=== PATIENT | male | born 1955 | race Caucasian/White ===

== ENCOUNTER → 2023-11-10 12:19 | Outpatient (REF) | payer MEDICARE, OTHER, SELFPAY | LOC: HWRAD 12:19 | PROVIDERS: ATTENDING PHYSICIAN Family Medicine | DX: R10.9 Unspecified abdominal pain (principal); R35.0 Frequency of micturition | CPT/HCPCS: 76770 ==

== ENCOUNTER 2024-02-07 18:19 | Inpatient (IN) | payer MEDICARE, OTHER, SELFPAY ==
[2024-02-07 12:34] VITALS: BMI 42.8
[2024-02-07 12:38] VITALS: BP 160/98
[2024-02-07 12:58] LABS: % Basophils 0.6 % (0-2); % Eosinophils 2.5 % (0-6); % Immature Granulocytes 0.4 % (0-0.5); % Lymphocytes 20.5 % (20.5-51.1); Absolute Eosinophils 0.1 10^3/uL (0-0.7); Absolute Monocytes 0.3 10^3/uL (0.1-0.6); Absolute Neutrophils 3.3 10^3/uL (1.4-6.5); Hemoglobin 15.7 g/dL (13.0-18.0); Mean Corp Hgb Conc. 33.4 g/dL (33.0-37.0); Mean Corpuscular Hgb 30.3 pg (27.0-31.0); Mean Corpuscular Volume 90.6 fL (80.0-94.0); Mean Platelet Volume 9.9 fL (7.4-10.4); Nucleated Red Blood Cells % 0 % (-); Platelet Count 143 10^3/uL (130-400); Red Blood Cell Count 5.19 10^6/uL (4.70-6.10); Red Cell Dist. Width 13.5 % (11.5-14.5); White Blood Cell Count 4.8 10^3/uL (4.8-10.8)
[2024-02-07 13:03] LABS: INR 1.07; PT 14.2 Sec (11.4-14.6)
[2024-02-07 13:04] LABS: APTT 32.4 Sec (23.4-35.0)
[2024-02-07 13:17] LABS: ALT (SGPT) 37 U/L (0-50); AST (SGOT) 41 U/L (17-59); Albumin 4.2 g/dl (3.5-5.0); Alkaline Phosphatase 75 U/L (38-126); Blood Urea Nitrogen 18 mg/dl (9-20); Calcium 8.8 mg/dl (8.4-10.2); Carbon Dioxide 27 mmol/L (22-30); Chloride 107 mmol/L (98-107); Glucose 179 mg/dl (70-99); Potassium 3.8 mmol/L (3.5-5.1); Sodium 141 mmol/L (135-145); Total Bilirubin 1.2 mg/dl (0.2-1.3); Total Protein 6.6 g/dl (6.3-8.2); eGFR > 60.00
[2024-02-07 13:32] LABS: NT-proBNP 1500 pg/ml; Troponin I 0.084 ng/ml
[2024-02-07 15:35] LABS: Troponin I 0.155 ng/ml
[2024-02-07 15:43] LABS: D-Dimer > 20.00 ug/mlFEU (0.00-0.50)
[2024-02-07 16:06] VITALS: BP 163/115
--- NOTE | 2024-02-07 16:09 | CON.INTV ---
Consultation
Consultation Request
Date/Time Consultation Requested: 02/07/2024
Date/Time Consultation Performed: 02/07/2024
Performing Provider: Dr. Donavon Lancaster
Reason for Consultation: Acute pulmonary embolus
Medical History
-
History of Present Illness:
68-year-old man with history of arthritis, hypertension, BPH, GERD, hypercholesterolemia who comes to the hospital complaining of shortness of breath after coming from [facility]. Found to have pulmonary embolism with RV strain on CAT scan.
PERT alert was called from ED, I urgently evaluated patient.
Patient states that immediately after coming off the plane he felt short of breath. He needed a wheelchair to walk back to his car.
Due to persistent symptoms he came to the emergency room for evaluation.
Prior to these he was in multiple countries in [place] able to ambulate with no problems.
He denies prior history of clots
Denies prior history of cancer
He reports being up-to-date with cancer screening
Denies family history of clots.
Past Medical History
Past Medical History: Other (See assessment and plan findings)
Social History
Tobacco: Other (Never smoker)
Alcohol: Occasional
Drug: None
Personal:
Living: With Family
Family History
Family History: Reviewed & Not Pertinent
Allergies / Home Medications
Allergies
Allergy/AdvReac Type Severity Reaction Status Date / Time
No Known Allergies Allergy Unverified 02/17/23 13:03
Home Medications
�Medication �Instructions �Recorded �Confirmed �Last Taken �Type
atorvastatin 20 mg tablet 20 mg PO DAILY High Cholesterol 02/14/09 02/07/24 02/07/24 History
ibuprofen 200 mg capsule 3 tab PO Q6HPRN PRN mild pain 02/14/09 02/07/24 02/06/24 History
valsartan 80 mg tablet (Diovan) 160 mg PO DAILY Blood Pressure 02/14/09 02/07/24 02/07/24 History
Semaglutide Vial 40 units SC SA 02/07/24 02/07/24 01/28/24 History
sarilumab 150 mg/1.14 mL 150 mg SC Q2W Autoimmune Disorder 02/07/24 02/07/24 Unknown History
subcutaneous pen injector (Kevzara)
Review of Systems
-
History Source: Patient
All other systems: Negative unless noted
Vitals / Labs / Diagnostic Testing
Vital Signs
Temp Pulse Resp BP Pulse Ox
98.2 F 98 18 160/98 94
02/07/24 12:38 02/07/24 12:38 02/07/24 12:38 02/07/24 12:38 02/07/24 12:38
Lab Data
02/07/24 12:47
02/07/24 12:47
Laboratory Results
02/07/24 02/07/24
12:47 15:44
PT 14.2
INR 1.07
APTT 32.4 Cancelled
Diagnostic Testing:
Physical Exam
-
HEENT: Normocephalic
Cardiovascular: S1/S2 and Prashanth's Sign (n)
Respiratory: Non-Labored Respirations
GI: Soft and Non Distended
Neurology: Awake, Oriented, AO x 3 and No Motor Deficits
Skin: Warm, Good Color and Other (Adequate distal perfusion)
General: Respiratory Distress and Comfortable
Assessment
-
68-year-old man who came to the emergency room complaining of shortness of breath after transatlantic flight. Found to have central pulmonary embolism with RV strain, positive troponins, increased proBNP. We were consulted after a PET alert was
called.
Acute submassive pulmonary embolism-likely provoked after traveling/obese.
CT chest reviewed: Bilateral acute pulmonary embolism, no evidence for RV strain on CAT scan. Saddle nonobstructive component.
Mildly increased troponin
proBNP 1500
Conditions present prior admission:
BPH
Hypertension
Morbid obesity BMI greater than 40
Hypercholesterolemia
GERD
Rheumatoid arthritis-Kevzara
Assessment and plan:
Pulmonary embolism likely provoked after transatlantic flight few days ago. Saw patient in ED as PERT alert, discussed with ED.
Not hypotensive
Not tachycardic
Mild oxygen requirement at 2 L
Patient appears in no distress, able to speak in full sentences.
No JVD on exam.
Mild troponin leak noted
Increased proBNP noted
-
PESI score 100 -intermediate risk.
At this point given the stability I recommend against systemic or catheter lysis thrombolysis or thrombectomy.
Will need close hemodynamic monitoring, if there is decompensation such as hypotension and worsening hypoxemia then we can consider.
Obtain lower extremity Dopplers
Obtain echocardiogram
Trend troponins
-
Likely patient will need 3 months of anticoagulation, this will be an ongoing discussion.
May admit to intermediate care unit on school bus monitor.
-
Discussed with patient in detail and he is agreeable.
-
Will continue to follow

CT chest 02/07/2024: Reviewed
1. SEVERE ACUTE PULMONARY ARTERIAL EMBOLIC DISEASE with a saddle pulmonary embolus in the main pulmonary artery and extensive embolic disease throughout the upper and lower lobe pulmonary arteries of both lungs.
2. No CTA evidence for right heart strain.
3. Mild subpleural scarring/subsegmental atelectasis in both lungs.
4. 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
--- NOTE | 2024-02-07 16:10 | ED.GENMED ---
History of Present Illness
<Hernandez Li PA-C - Last Filed: 02/07/24 17:57>
General
Chief Complaint: Chest Pain
Time Seen by Provider: 02/07/24 14:19
History of Present Illness
History of Present Illness:
68-year-old male with history of hypertension and hyperlipidemia presents to the emergency department for evaluation of chest pain, lightheadedness, and shortness of breath developing after returning on a flight from [facility]. States that while
abroad he was able to exert himself frequently throughout the day without any similar symptoms. Upon landing in the night states yesterday he noticed symptoms that limited his ability to walk off the plane. He felt better overnight but again
worsened with exertion this morning prompting him to come to the ED. Denies any dyspnea or chest tightness at rest. No leg swelling or calf cramping. No recent fevers or chills.
Review of Systems
<Hernandez Li PA-C - Last Filed: 02/07/24 17:57>
Review of Systems
Allergies reviewed?: Yes
All Other Systems: ROS reviewed and negative except as documented in HPI and ROS
Phy Exam
<Hernandez Li PA-C - Last Filed: 02/07/24 17:57>
Physical Exam
Physical Exam:
GEN: Well appearing, NAD, WDWN
Eyes: PERRLA, EOMs intact, no scleral icterus
HENT: NCAT, oral mucosa moist
Lungs: CTAB, no wheezes, rales, rhonchi, normal chest wall excursion
Cardiac: RRR, no M/R/G, no peripheral edema. Radial pulses 2+ bilat
Neuro: AO x 3
MSK: No gross deformity or ecchymosis. No edema. No digital clubbing
Skin: No rashes, petechiae. Normal color, no pallor or jaundice.
Psych: Calm, cooperative, proper hygiene
Scores
<Hernandez Li PA-C - Last Filed: 02/07/24 17:57>
Heart Score for Chest Pain Patients
STEMI patient?: Not applicable
Course
<Hernandez Li PA-C - Last Filed: 02/07/24 17:57>
Orders/Labs/Results
Orders:
Orders
02/07/24 12:35
EKG [Electrocardiogram (*1)] Urgent
Reason for Study: Chest Pain
EKG- Treatment ONCE
02/07/24 12:47
BNP [NT-proBNP] Urgent
Complete Blood Count/With Diff Urgent
Comprehensive Metabolic Panel Urgent
D-Dimer Urgent
Comment: ADD ON
Protime/PTT Urgent
Troponin I Urgent
02/07/24 14:35
Electrocardiogram (*1) Urgent
Reason for Study: Chest Pain
02/07/24 14:52
Troponin I Urgent
02/07/24 Dinner
Regular
At Your Request: Full Participation
Does patient need a safe tray?: No
02/07/24 15:19
CT Chest Pe Study Urgent
Comment:
Reason For Exam: chest pain/SOB/hypoxia
02/07/24 15:44
Heparin 4,000 units IV NOW STA
Nursing to Place Non Medication Order As Directed
Physician Order: PTT 6 hours after initial start of Heparin infusion
Above order entered?: Yes
02/07/24 15:45
Heparin 82751 Units/250 ml 25,000 units in 250 ml IV PER PROTOCOL
Weight to be used for heparin protocol in kilograms (kg):: 139
Protocol:: Cardiac Tx/Acute Coronary
PTT Goal Range to be used:: PTT 73 to 111 seconds
Order type:: Initial
INITIAL Infusion Dose (UNITS/KG/hr) & then follow protocol:: 12 units/kg/hr
Infusion Dose in UNITS/hr & then follow protocol (UNITS/hr):: 1,000
INFUSION RATE in mL/hr & then follow protocol (mL/hr):: 10
PTT less than or equal to 64 seconds:: Increase rate by 200 units/hr (+ 2 mL/hr)
PTT 64.1 to 72.9 seconds:: Increase rate by 100 units/hr (+ 1 mL/hr)
PTT 73 to 111 seconds:: Target Range. No change in rate.
PTT 111.1 to 130.9 seconds:: Decrease rate by 100 units/hr (- 1 mL/hr)
PTT 131 to 199.9 seconds:: HOLD for 1 hr. Then decrease rate by 200 units/hr (- 2 mL/hr)
PTT greater than or equal to 200 seconds:: HOLD for 2 hrs & Notify Provider. Then decrease by 200 units/hr (-
2 mL/hr)
Lab follow-up:: Each change, PTT q6h until 2 consecutive are therapeutic. Then PTT
daily.
02/07/24 15:48
Heparin 10,000 units IV NOW STA
02/07/24 15:49
Heparin 47672 Units/250 ml 25,000 units in 250 ml IV PER PROTOCOL
Weight to be used for heparin protocol in kilograms (kg):: 139
Protocol:: DVT/PE
PTT Goal Range to be used:: PTT 73 to 111 seconds
Order type:: Initial
INITIAL Infusion Dose (UNITS/KG/hr) & then follow protocol:: 18 units/kg/hr
Infusion Dose in UNITS/hr & then follow protocol (UNITS/hr):: 2,000
INFUSION RATE in mL/hr & then follow protocol (mL/hr):: 20
For DVT/PE algorithm, re-bolus for low PTT?: Yes
PTT less than or equal to 64 seconds:: Re-bolus 80 units/kg (max 10,000units). Increase by 500 units/hr
(+ 5mL/hr)
PTT 64.1 to 72.9 seconds:: Re-bolus 40 units/kg (max 5,000 units). Increase by 300 units/hr
(+ 3mL/hr)
PTT 73 to 111 seconds:: Target Range. No change in rate.
PTT 111.1 to 130.9 seconds:: Decrease rate by 300 units/hr (- 3 mL/hr)
PTT 131 to 199.9 seconds:: HOLD for 1 hr. Then decrease by 400 units/hr (- 4mL/hr)
PTT greater than or equal to 200 seconds:: HOLD for 2 hrs & Notify Provider. Then decrease by 500 units/hr
(- 5mL/hr)
Lab follow-up:: Each change, PTT q6h until 2 consecutive are therapeutic. Then
PTT daily.
02/07/24 15:55
Heparin 10,000 units IV PRN PRN
02/07/24 15:57
Heparin 5,000 units IV PRN PRN
02/07/24 17:31
Echo 2D MMode Color/Doppler Routine
Reason for Study: PE
02/07/24 17:32
US Legs, Bilateral [US Periph Venous LOWER Ext Paddy] Routine
Comment:
Reason For Exam: PE
02/07/24 17:43
Admit/Transfer Patient As Directed
Co-Sign Provider:
Level of Care: Inpatient admission
Assign to:: IMU- Intermediate Care
Physician / Group: Mindy Baca
Diagnosis: Acute Saddle Pulmonary Embolism
Reason for Hospitalization: Acute Saddle Pulmonary Embolism
Expected length of stay greater than two midnights?: Yes
ELOS- Estimated Length of Stay in days: 3
I certify the patient meets the requirements for IP care: Yes
PRN Pain Medication Management As Directed
May give lesser potent ordered pain med per pt: Yes
preference::
Protocol:: Medication orders for pain may be administered in a
manner that supports deferring to patient preference
when the pt is:
- Requesting an ordered lesser potent pain medication.
Least to most potent pain medications are defined
as: acetaminophen < NSAID < tramadol < opioids
(morphine, oxycodone, hydromorphone).
- Requesting a lesser dose of the same medication IF
ORDERED.
- Requesting a less intrusive route of administration
if both routes are prescribed by the provider (PO <
IV).
02/07/24 17:45
Code Status As Directed
Resuscitation Status: Full Code
02/07/24 19:30
Acetaminophen [Tylenol] 650 mg PO Q4HPRN PRN
02/07/24 19:30
PULMONARY CONSULT Routine
Consulting Provider: Donavon Live
Was physician already notified: Yes
Activity As Directed
Activity Level: Out of Bed-Early Mobility
Bladder Scan As Directed
Follow Bladder Retention/Intermittent Cath Algorithm?: Yes
Frequency: Per Retention Algorithm
Comment: as per intermittent urinary catheter algorithm
Intake/ Output As Directed
Frequency: Per unit guidelines
Straight Cath As Directed
Frequency: Per Retention Algorithm
Additional Instructions: straight cath as needed per acute urinary retention algorithm for 24 hrs
Additional Instructions: for bladder scan greater than 400 mL
Vital Signs As Directed
Frequency: Per unit guidelines
02/07/24 21:00
Troponin I Q6H
02/07/24 22:30
PTT Urgent
02/08/24 03:00
Troponin I Q6H
02/08/24 06:00
Complete Blood Count/No Diff IN AM
Comprehensive Metabolic Panel IN AM
02/08/24 08:00
Atorvastatin [Lipitor] 20 mg PO DAILY
Valsartan [Diovan] 160 mg PO DAILY
02/08/24 09:00
Troponin I Q6H
02/09/24 06:00
Complete Blood Count/No Diff IN AM
Comprehensive Metabolic Panel IN AM
02/10/24 06:00
Complete Blood Count/No Diff IN AM
Comprehensive Metabolic Panel IN AM
Abnormal Lab Results
02/07/24 02/07/24
12:47 14:52
Absolute Lymphs (auto) 1.0 L 10^3/uL
(1.2-3.4)
D-Dimer > 20.00 H ug/mlFEU
(0.00-0.50)
Glucose 179 H mg/dl
(70-99)
Troponin I 0.084 H* ng/ml 0.155 H* D ng/ml
02/07/24 12:47
02/07/24 12:47
Vital Signs
Initial and Last Documented VS:
Initial Vital Signs
Temp Pulse Resp BP Pulse Ox
98.2 F 98 18 160/98 94
02/07/24 12:38 02/07/24 12:38 02/07/24 12:38 02/07/24 12:38 02/07/24 12:38
Last Documented Vital Signs
Temp Pulse Resp BP Pulse Ox
98.0 F 67 12 143/79 95
02/07/24 19:42 02/07/24 19:30 02/07/24 19:30 02/07/24 19:00 02/07/24 19:43
Innalt;Odette Lazar, DO - Last Filed: 02/07/24 20:44>
Orders/Labs/Results
Orders:
Orders
02/07/24 12:35
EKG [Electrocardiogram (*1)] Urgent
Reason for Study: Chest Pain
EKG- Treatment ONCE
02/07/24 12:47
BNP [NT-proBNP] Urgent
Complete Blood Count/With Diff Urgent
Comprehensive Metabolic Panel Urgent
D-Dimer Urgent
Comment: ADD ON
Protime/PTT Urgent
Troponin I Urgent
02/07/24 14:35
Electrocardiogram (*1) Urgent
Reason for Study: Chest Pain
02/07/24 14:52
Troponin I Urgent
02/07/24 Dinner
Regular
At Your Request: Full Participation
Does patient need a safe tray?: No
02/07/24 15:19
CT Chest Pe Study Urgent
Comment:
Reason For Exam: chest pain/SOB/hypoxia
02/07/24 15:44
Heparin 4,000 units IV NOW STA
Nursing to Place Non Medication Order As Directed
Physician Order: PTT 6 hours after initial start of Heparin infusion
Above order entered?: Yes
02/07/24 15:45
Heparin 30150 Units/250 ml 25,000 units in 250 ml IV PER PROTOCOL
Weight to be used for heparin protocol in kilograms (kg):: 139
Protocol:: Cardiac Tx/Acute Coronary
PTT Goal Range to be used:: PTT 73 to 111 seconds
Order type:: Initial
INITIAL Infusion Dose (UNITS/KG/hr) & then follow protocol:: 12 units/kg/hr
Infusion Dose in UNITS/hr & then follow protocol (UNITS/hr):: 1,000
INFUSION RATE in mL/hr & then follow protocol (mL/hr):: 10
PTT less than or equal to 64 seconds:: Increase rate by 200 units/hr (+ 2 mL/hr)
PTT 64.1 to 72.9 seconds:: Increase rate by 100 units/hr (+ 1 mL/hr)
PTT 73 to 111 seconds:: Target Range. No change in rate.
PTT 111.1 to 130.9 seconds:: Decrease rate by 100 units/hr (- 1 mL/hr)
PTT 131 to 199.9 seconds:: HOLD for 1 hr. Then decrease rate by 200 units/hr (- 2 mL/hr)
PTT greater than or equal to 200 seconds:: HOLD for 2 hrs & Notify Provider. Then decrease by 200 units/hr (-
2 mL/hr)
Lab follow-up:: Each change, PTT q6h until 2 consecutive are therapeutic. Then PTT
daily.
02/07/24 15:48
Heparin 10,000 units IV NOW STA
02/07/24 15:49
Heparin 92728 Units/250 ml 25,000 units in 250 ml IV PER PROTOCOL
Weight to be used for heparin protocol in kilograms (kg):: 139
Protocol:: DVT/PE
PTT Goal Range to be used:: PTT 73 to 111 seconds
Order type:: Initial
INITIAL Infusion Dose (UNITS/KG/hr) & then follow protocol:: 18 units/kg/hr
Infusion Dose in UNITS/hr & then follow protocol (UNITS/hr):: 2,000
INFUSION RATE in mL/hr & then follow protocol (mL/hr):: 20
For DVT/PE algorithm, re-bolus for low PTT?: Yes
PTT less than or equal to 64 seconds:: Re-bolus 80 units/kg (max 10,000units). Increase by 500 units/hr
(+ 5mL/hr)
PTT 64.1 to 72.9 seconds:: Re-bolus 40 units/kg (max 5,000 units). Increase by 300 units/hr
(+ 3mL/hr)
PTT 73 to 111 seconds:: Target Range. No change in rate.
PTT 111.1 to 130.9 seconds:: Decrease rate by 300 units/hr (- 3 mL/hr)
PTT 131 to 199.9 seconds:: HOLD for 1 hr. Then decrease by 400 units/hr (- 4mL/hr)
PTT greater than or equal to 200 seconds:: HOLD for 2 hrs & Notify Provider. Then decrease by 500 units/hr
(- 5mL/hr)
Lab follow-up:: Each change, PTT q6h until 2 consecutive are therapeutic. Then
PTT daily.
02/07/24 15:55
Heparin 10,000 units IV PRN PRN
02/07/24 15:57
Heparin 5,000 units IV PRN PRN
02/07/24 17:31
Echo 2D MMode Color/Doppler Routine
Reason for Study: PE
02/07/24 17:32
US Legs, Bilateral [US Periph Venous LOWER Ext Paddy] Routine
Comment:
Reason For Exam: PE
02/07/24 17:43
Admit/Transfer Patient As Directed
Co-Sign Provider:
Level of Care: Inpatient admission
Assign to:: IMU- Intermediate Care
Physician / Group: Mindy Baca
Diagnosis: Acute Saddle Pulmonary Embolism
Reason for Hospitalization: Acute Saddle Pulmonary Embolism
Expected length of stay greater than two midnights?: Yes
ELOS- Estimated Length of Stay in days: 3
I certify the patient meets the requirements for IP care: Yes
PRN Pain Medication Management As Directed
May give lesser potent ordered pain med per pt: Yes
preference::
Protocol:: Medication orders for pain may be administered in a
manner that supports deferring to patient preference
when the pt is:
- Requesting an ordered lesser potent pain medication.
Least to most potent pain medications are defined
as: acetaminophen < NSAID < tramadol < opioids
(morphine, oxycodone, hydromorphone).
- Requesting a lesser dose of the same medication IF
ORDERED.
- Requesting a less intrusive route of administration
if both routes are prescribed by the provider (PO <
IV).
02/07/24 17:45
Code Status As Directed
Resuscitation Status: Full Code
02/07/24 19:30
Acetaminophen [Tylenol] 650 mg PO Q4HPRN PRN
02/07/24 19:30
PULMONARY CONSULT Routine
Consulting Provider: Donavon Live
Was physician already notified: Yes
Activity As Directed
Activity Level: Out of Bed-Early Mobility
Bladder Scan As Directed
Follow Bladder Retention/Intermittent Cath Algorithm?: Yes
Frequency: Per Retention Algorithm
Comment: as per intermittent urinary catheter algorithm
Intake/ Output As Directed
Frequency: Per unit guidelines
Straight Cath As Directed
Frequency: Per Retention Algorithm
Additional Instructions: straight cath as needed per acute urinary retention algorithm for 24 hrs
Additional Instructions: for bladder scan greater than 400 mL
Vital Signs As Directed
Frequency: Per unit guidelines
02/07/24 21:00
Troponin I Q6H
02/07/24 22:30
PTT Urgent
02/08/24 03:00
Troponin I Q6H
02/08/24 06:00
Complete Blood Count/No Diff IN AM
Comprehensive Metabolic Panel IN AM
02/08/24 08:00
Atorvastatin [Lipitor] 20 mg PO DAILY
Valsartan [Diovan] 160 mg PO DAILY
02/08/24 09:00
Troponin I Q6H
02/09/24 06:00
Complete Blood Count/No Diff IN AM
Comprehensive Metabolic Panel IN AM
02/10/24 06:00
Complete Blood Count/No Diff IN AM
Comprehensive Metabolic Panel IN AM
Abnormal Lab Results
02/07/24 02/07/24
12:47 14:52
Absolute Lymphs (auto) 1.0 L 10^3/uL
(1.2-3.4)
D-Dimer > 20.00 H ug/mlFEU
(0.00-0.50)
Glucose 179 H mg/dl
(70-99)
Troponin I 0.084 H* ng/ml 0.155 H* D ng/ml
02/07/24 12:47
02/07/24 12:47
Vital Signs
Initial and Last Documented VS:
Initial Vital Signs
Temp Pulse Resp BP Pulse Ox
98.2 F 98 18 160/98 94
02/07/24 12:38 02/07/24 12:38 02/07/24 12:38 02/07/24 12:38 02/07/24 12:38
Last Documented Vital Signs
Temp Pulse Resp BP Pulse Ox
98.0 F 67 12 143/79 95
02/07/24 19:42 02/07/24 19:30 02/07/24 19:30 02/07/24 19:00 02/07/24 19:43
<Hernandez Li PA-C - Last Filed: 02/07/24 17:57>
MDM/Problems Addressed
MDM/Problems Addressed:
68-year-old male found to have submassive pulmonary embolism, he is clinically stable at this time. PERT alert was called and critical care evaluated the patient at bedside. At this time given significant clinical stability he is not a candidate
for thrombolysis, we will maintain heparin and admit the patient to the IMU for close monitoring and reassessment.
<Hernandez Li PA-C - Last Filed: 02/07/24 17:57>
*Critical Care Note
Total Time (30-74mins, 75-104mins- exclusive of procedures): 40 minutes
comment:
Critical care time: 40 minutes
Critical care time was exclusive of: Separately billable procedures, treating other patients, and teaching time
Critical care was necessary to treat or prevent imminent or life-threatening deterioration of the following conditions: Submassive pulmonary embolism
Critical care time spent personally by me on the following activities:
[x] Review of old charts
[x] Obtaining history from patient or surrogate
[x] Ordering and review of the laboratory studies
[x] Ordering and review of radiographic studies
[x] Ordering and performing treatments and interventions
[x] Patient patient's response to treatment
[x] Development of treatment plan with patient or surrogate
ED Attending Note
<Hernandez Li PA-C - Last Filed: 02/07/24 17:57>
-
Portions of this chart may have been created with voice recognition software.� Occasional wrong word or��sound alike� substitutions may have occurred due to the inherent limitations of voice recognition software.
<Odette Lazar DO - Last Filed: 02/07/24 20:44>
ED Attending Note
Patient seen and examined by attending physician: Yes
I performed the substantive portion of visit, reviewed & personally made and approve the management plan that is documented in note by myself or EMANI.: Yes
ED Attending Note:
I have reviewed and agree with Joshua Li PA-C's history and treatment plan. My exam revealed heart RRR, lungs clear, no respiratory distress. no LE edema bilaterally. CTA significant for saddle PE. Pt on heparin. Admit
Discharge Plan
Departure
Patient Disposition: Admit
Date of Disposition: 02/07/24
Time of Disposition: 16:32
Admit to: IMU
Presentation/result/management discussed w/ accepting MD/DO: Hospitalist
Discharge Problem:
Acute saddle pulmonary embolism
Interventions
Interventions:
*Risk Screen - Suicide Last Done: 02/07/24 12:38
*General Assessment Last Done: 02/07/24 12:38
*Neglect/Abuse Screening Last Done: 02/07/24 12:38
*ED COVID-19 Vaccine History Last Done: 02/07/24 12:38
ED- Cardiac Assessment Last Done: 02/07/24 15:30
[2024-02-07] MEDS: HEPARIN 10000 UNITS IV (16:20)
[2024-02-07] MEDS: HEPARIN 25000 UNITS/250 ML IV (16:21)
[2024-02-07 17:01] VITALS: BP 150/96
--- NOTE | 2024-02-07 17:01 | HPS.HSE ---
Addendum entered and electronically signed by Mindy Baca DO 02/07/24 19:05:
The patient is seen and examined. I have reviewed the patient with Enriqueta, and agree with her history and physical, assessment and plan of care as per below:
Pt notes unchanged chest discomfort, not worse than previous.
currently VSS, AF
Lungs CTA b/l
CV RRR, no m/r/g
Impression:
Severe acute pulmonary artery embolic disease, pt is hemodynamically stable at this time, no right heart strain on CTA
-IMU admission
-seen by Pulm in ED
-cont Hep gtt, echo (non urgent per discussion with Pulm, unless pt becomes unstable or has symptom changes)
Original Note:
Family Physician
-
Family Physician: Jose Alfredo Abarca
Chief Complaint
-
Shortness of breath/lightheadedness/chest pain
History of Present Illness
Patient is a 68-year-old male with past medical history significant for hypertension, hyperlipidemia, BPH and GERD who presented to [facility] for evaluation of shortness of breath with exertion. Patient stated he flew back from [place] with his
yesterday, taking two flights the first for 3 hours and the second 9 hours landing in [place]. Patient states while raveling about [place] he did a large amount of walking and did not have any issues. Patient reports when he got off the plane he
had to stop walking twice related to shortness of breath and ultimately needing a wheelchair to get to his car. He elected to wait to come for evaluation because by the time he got home and was resting all symptoms had resolved.
Medical History
Past Medical History
Past Medical History: Reports Other
Additional Past Medical History:
hypertension
hyperlipidemia
BPH
GERD
arthritis
obesity
Past Surgical History: Reports Other
Additional Past Surgical History:
Left ankle bone fragment removal
bilateral knee replacements
right hip replacement
bilateral rotator cuff repairs
and bilateral shoulder labrum repair
Social History
Tobacco: Non-smoker
Alcohol: Occasional
Drug: None
Personal:
Living: With Family
Employment: Retired
Family History
Family History: Not pertinent
Allergies / Home Medications
Allergies reflects when Allergies were last updated in [employer].
Home Medications with original date entered in [employer]
Allergy/Medication List:
Allergies
Allergy/AdvReac Type Severity Reaction Status Date / Time
No Known Allergies Allergy Unverified 02/17/23 13:03
Home Medications
atorvastatin 20 mg tablet 20 mg PO DAILY High Cholesterol 02/14/09
ibuprofen 200 mg capsule 3 tab PO Q6HPRN PRN mild pain 02/14/09
valsartan 80 mg tablet (Diovan) 160 mg PO DAILY Blood Pressure 02/14/09
Semaglutide Vial 40 units SC SA 02/07/24
sarilumab 150 mg/1.14 mL subcutaneous pen injector (Kevzara) 150 mg SC Q2W Autoimmune Disorder 02/07/24
Review of Systems
-
History Source: Patient
Constitutional: Reports No Symptoms
EENT: Reports No Symptoms
Respiratory: Reports Other (shortness of breath with exertion)
Cardiac: Reports Chest Pain
Abdomen/GI: Reports No Symptoms
: Reports No Symptoms
Musculoskeletal: Reports No Symptoms
Skin: Reports No Symptoms
Neurological: Reports Dizzy
Endocrine: Reports No Symptoms
Hematologic/Lymphatic: Reports No Symptoms
Psych: Reports No Symptoms
Physical Exam
Vital Signs
Vital Signs
Temp Pulse Resp BP Pulse Ox
98.2 F 98 18 160/98 94
02/07/24 12:38 02/07/24 12:38 02/07/24 12:38 02/07/24 12:38 02/07/24 12:38
Physical Exam
General: Well Developed, Well Nourished, No Apparent Distress, Comfortable and Conversant
HEENT: NormoCephalic, Moist mucous membranes, Atraumatic, PERRLA, Pratt Conjunctivae, Nose Appears Normal and Ears Appear Normal
Respiratory: Clear and Non Labored Respirations; No Wheezes, Rales, Rhonchi or Crackles
Cardiac: S1/S2 and Regular Rhythm; No Murmur, Rub or Gallop
Breast: Deferred by me
GI: Soft, Non Tender and Normal Bowel Sounds; No Organomegaly
Rectal: Deferred by Provider
Genito-urinary: Deferred by me
Musculoskeletal: No Clubbing, No Cyanosis and No Edema
Skin: Warm and IV/Catheter Site; No Rash
Neuro: Awake, Alert, AO x 3 and Nonfocal/grossly intact
Hematologic/Lymphatic: No Lymphadenopathy
Psych: Calm and Intact Judgment/Insight
Laboratory Results
-
02/07/24 12:47
02/07/24 12:47
Laboratory Results
PT 14.2 Sec (11.4-14.6) 02/07/24 12:47
INR 1.07 02/07/24 12:47
APTT Cancelled 02/07/24 15:44
Total Bilirubin 1.2 mg/dl (0.2-1.3) 02/07/24 12:47
AST 41 U/L (17-59) 02/07/24 12:47
ALT 37 U/L (0-50) 02/07/24 12:47
Alkaline Phosphatase 75 U/L (38-126) 02/07/24 12:47
Troponin I 0.155 ng/ml H* D 02/07/24 14:52
Data Reviewed
-
CT Scan: Report Reviewed by me (Chest: 1. SEVERE ACUTE PULMONARY ARTERIAL EMBOLIC DISEASE with a saddle pulmonary embolus in the main pulmonary artery and extensive embolic disease throughout the upper and lower lobe pulmonary arteries of both
lungs. 2. No CTA evidence for right heart strain. 3. Mild subpleural scarring/subs)
Medical Tests (Nuc Med, Echo, EKG etc): Report Reviewed by me (EKG: NORMAL SINUS RHYTHM)
Lab Data: Labs Reviewed by me (D-Dimer >20.0, troponin 0.084 and 0.155, BNP 1500)
Impression/Plan
-
IMPRESSION/PLAN:
#saddle PE
central pulmonary embolism with RV strain, positive troponins, increased proBNP.
Chest CT: 1. SEVERE ACUTE PULMONARY ARTERIAL EMBOLIC DISEASE with a saddle pulmonary embolus in the main pulmonary artery and extensive embolic disease throughout the upper and lower lobe pulmonary arteries of
both lungs.
2. No CTA evidence for right heart strain.
3. Mild subpleural scarring/subsegmental atelectasis in both lungs.
4. 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
- Admit to IMU
- Consult pulmonary
- Heparin gtt
- PRN Oxygen
- Echo
- Bilateral LE Doppler
- Trend troponin
#hypertension
- continue valsartan
#hyperlipidemia
- continue atorvastatin
#arthritis
- continue Kevzara
#obesity
BMI 42.7, affects all aspects of care
- continue Semaglutide
- encourage healthy lifestyle of diet and exercise
#BPH
#GERD
Code status: Full code
DVT Prophylaxis: Heparin gtt
[2024-02-07 18:00] VITALS: BP 104/61
[2024-02-07 19:00] VITALS: BP 143/79
--- NOTE | 2024-02-07 20:00 | PTCARENOTE ---
Resumed care of pt sitting up in bed AAOx3. Pt reports some slight chest discomfort 04/09, improved from prior. POX 95% on 2 Lo2 NC. Lungs dec. CANAS. + bowel, round obese abd. Palpable peripheral pulses present. Right AC int infusing Heparin gtt @2000
units/hr per protocol. Pt denies any complaints at this time. Box lunch provided. Visitors at bedside. Will continue to monitor.
[2024-02-07 22:01] VITALS: BP 142/93
[2024-02-07 22:26] LABS: APTT 187.3 Sec (23.4-35.0)
[2024-02-07 22:34] LABS: Troponin I 0.116 ng/ml
[2024-02-08] VITALS (17 sets, daily range): BP systolic 106–169; BP diastolic 56–97; BMI 45.5
--- NOTE | 2024-02-08 00:31 | PTCARENOTE ---
Oxygen dropping while sleeping. [address]. POX 92%. HR SB in the 50's. Heparin gtt infusing as ordered. No other changes in assessment noted at this time. Will continue to monitor.
[2024-02-08 04:31] LABS: Hematocrit 43.1 % (39.0-52.0); Hemoglobin 14.2 g/dL (13.0-18.0); Mean Corp Hgb Conc. 32.9 g/dL (33.0-37.0); Mean Corpuscular Volume 90.9 fL (80.0-94.0); Platelet Count 115 10^3/uL (130-400); Red Blood Cell Count 4.74 10^6/uL (4.70-6.10); Red Cell Dist. Width 13.6 % (11.5-14.5); White Blood Cell Count 4.7 10^3/uL (4.8-10.8)
[2024-02-08 04:42] LABS: APTT 153.3 Sec (23.4-35.0)
[2024-02-08 05:08] LABS: ALT (SGPT) 30 U/L (0-50); AST (SGOT) 42 U/L (17-59); Albumin 3.4 g/dl (3.5-5.0); Alkaline Phosphatase 72 U/L (38-126); Blood Urea Nitrogen 16 mg/dl (9-20); Carbon Dioxide 24 mmol/L (22-30); Chloride 109 mmol/L (98-107); Estimated Creatinine Clearance > 125 ml/min; Glucose 105 mg/dl (70-99); Sodium 141 mmol/L (135-145); Total Protein 5.7 g/dl (6.3-8.2); eGFR > 60.00
[2024-02-08 05:23] LABS: Troponin I 0.066 ng/ml
[2024-02-08 05:41] LABS: Calcium 8.3 mg/dl (8.4-10.2); Potassium 3.8 mmol/L (3.5-5.1)
[2024-02-08] MEDS: DIOVAN 160 MG PO (07:35)
[2024-02-08] MEDS: LIPITOR 20 MG PO (07:35)
--- NOTE | 2024-02-08 09:15 | W.PN.HOSP.TC ---
Today's Communication/Plan
-
see PN
Assessment / Plan
Assessment / Plan
A/P:
#Acute hypoxic insufficiecny 2/2 Saddle b/l acute provoked pulmonary embolism
#Acute RLE DVT
Hemodynamically stable
No CT evidence for the RH strain
Heparin drip and eventual DOAC, for at least 3months
Outpatient age-appropriate CA screening and consideration for CT abd/pelvis by PCP - patient verbalized agreement and understanding of the instructions
Pulm consult
Echo
#Non-ischemic myocardial injury
2/2 PE
Troponin improving
EKG with no ST elevation or TWI consistent with ACS
No substernal pain
#RA
#DISH
hold Kevzara -could be provoking factor
#EssentiL HTN
cont home meds
#Morbid obesity with BMI 45.5
patient recently lost 25lbs on Semaglutide - cont as outpatient
#Mild thrombocytopenia
not consistent with HIT since started during firts 24h of admission. COnt heparin and check for HIT Ab
Can be 2/2 Kevzara vs VTE
monitor
DVT ppx - on hep drip
Full code
I have spent at least 58min reviewing chart, test results, communication with consultants and direct patient care
Anticipated Discharge: > 48 hours
Subjective/Interval History
-
Date of Service: February 08, 2024
Objective Data
-
Labs:
Laboratory Results
02/07/24 02/08/24 02/08/24
22:00 04:15 12:00
WBC 4.7 L
Hgb 14.2
Hct 43.1
Plt Count 115 L
APTT 187.3 H* 153.3 H* Pending
Sodium 141
Potassium 3.8
Chloride 109 H
Carbon Dioxide 24
BUN 16
Creatinine 0.8
Glucose 105 H
Calcium 8.3 L
Total Bilirubin 1.0
AST 42
ALT 30
Alkaline Phosphatase 72
Vital Signs:
Vital Signs
Temp Pulse Resp BP Pulse Ox
98.2 F 60 19 150/87 96
02/08/24 07:54 02/08/24 08:15 02/08/24 08:15 02/08/24 08:00 02/08/24 08:15
I&O
02/07/24 02/08/24 02/09/24
06:59 06:59 06:59
Intake Total 96 / 96
Output Total 150 / 150
Balance -54 / -54
Review of Systems
-
History Source: Patient
All other systems: Reviewed and negative
Respiratory: Reports Trouble Breathing
Physical Exam
-
General: No Apparent Distress and Comfortable
HEENT: Normocephalic
Respiratory: Clear to Auscultation; Negative Wheezes or Crackles
Cardiac: Regular Rhythm
GI: Soft, Nontender and Nondistended
Genito-urinary: No Costovertebral Tender
Musculoskeletal: No Clubbing, No Cyanosis and No Edema
Neuro: Awake, Alert, Oriented and AO x 3
Psych: Calm
[2024-02-08 09:50] LABS: COVID-19 Antigen Negative (Negative)
[2024-02-08 10:06] LABS: Troponin I 0.039 ng/ml
--- NOTE | 2024-02-08 12:08 | W.PN.PUL3 ---
Today's Communication / Plan
-
ECHO stable, duplex with RLE DVT
Home O2 eval
CM consult for OAC --can transition tonight per team
OP pulm FU discussed with patient, will arrange for next 2 weeks
Discharge planning per team hopefully in 24 hours post transition
Assessment
-
68-year-old man who came to the emergency room complaining of shortness of breath after transatlantic flight. Found to have central pulmonary embolism with RV strain, positive troponins, increased proBNP. We were consulted after a PET alert was
called.
Acute submassive pulmonary embolism-likely provoked after traveling/obese.
CT chest reviewed: Bilateral acute pulmonary embolism, no evidence for RV strain on CAT scan. Saddle nonobstructive component.
Mildly increased troponin
proBNP 1500
RLE DVT
Conditions present prior admission:
BPH
Hypertension
Morbid obesity BMI greater than 40
Hypercholesterolemia
GERD
Rheumatoid arthritis-Kevzara
Assessment and plan:
Pulmonary embolism likely provoked after transatlantic flight few days ago. Saw patient in ED as PERT alert, discussed with ED.
Not hypotensive
Not tachycardic
Mild oxygen requirement at 2 L--will check home O2 eval
Patient appears in no distress, able to speak in full sentences.
No JVD on exam.
Mild troponin leak noted
Increased proBNP noted
PESI score 100 -intermediate risk.
At this point given the stability I recommend against systemic or catheter lysis thrombolysis or thrombectomy.
Will need close hemodynamic monitoring, if there is decompensation such as hypotension and worsening hypoxemia then we can consider.
Obtain lower extremity Dopplers--RLE DVT noted
Obtain echocardiogram--stable function, no evidence of strain
Trend troponins
-
Likely patient will need 3 months of anticoagulation, this will be an ongoing discussion.
CM consult for OAC
Transition per team
Some snoring noted, but he does not have EDS
Would screening for sleep apnea testing, can be done as OP
Discussed with patient in detail and he is agreeable.
Outpatient pulmonary FU discussed, needs to be seen in next 2 weeks as he plans to travel to [place] in Feb until May
We will arrange
Discharge planning per team post transition

CT chest 02/07/2024: Reviewed
1. SEVERE ACUTE PULMONARY ARTERIAL EMBOLIC DISEASE with a saddle pulmonary embolus in the main pulmonary artery and extensive embolic disease throughout the upper and lower lobe pulmonary arteries of both lungs.
2. No CTA evidence for right heart strain.
3. Mild subpleural scarring/subsegmental atelectasis in both lungs.
4. 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
ECHO 02/08/24- 1. Technically difficult study. Echo Lumason was utilized. 2. Normal left ventricular size and systolic function without obvious regional wall motion abnormalities. Estimated left ventricular ejection fraction is 55 to 60% by
visual estimation. 3. Normal right ventricular size and systolic function. 4. No significant valvular abnormalities. 4. No pericardial effusion.
No prior echocardiogram available for comparison.
Duplex 02/07/24- Findings: Nonocclusive and occlusive thrombus within the right femoral vein. Nonocclusive and occlusive thrombus within the thrombus within the right peroneal vein. Nonocclusive thrombus within the right posterior tibial vein.
There is spontaneous, phasic flow with compressibility in the right common femoral and popliteal veins.
Subjective Data
-
Date of Service:
Date of Service: February 08, 2024
Chief Complaint: Pulmonary Follow Up
Subjective:
No issues, remains on low O2
No SOB, ready to go home
Objective Data
Data Reviewed
Vital Signs / I&O / Oxygen:
Vital Signs
Temp Pulse Resp BP Pulse Ox
98.2 F 66 12 119/87 99
02/08/24 07:54 02/08/24 11:00 02/08/24 11:00 02/08/24 09:00 02/08/24 10:15
Intake and Output
02/07/24 02/08/24 02/09/24
06:59 06:59 06:59
Intake Total 96 / 96
Output Total 150 / 150
Balance -54 / -54
SaO2 99
Nasal Cannula flow liters per 3
minute
Physical Exam
General: Comfortable and Other (NAD, obese)
HEENT: Normocephalic, Anicteric and Moist Mucous Membranes
Cardiovascular: S1-S2 and Regular Rhythm
Respiratory: Clear and Non-Labored Respirations
GI: Soft, Non Distended and Non Tender
Neurology: Awake, Alert, Oriented and No Motor Deficits
Skin: Warm, Dry and Good Color
Labs/Micro/Reports
Lab Data
02/08/24 04:15
02/08/24 04:15
Laboratory Results
02/07/24 02/07/24 02/07/24
12:47 15:44 22:00
PT 14.2
INR 1.07
APTT 32.4 Cancelled 187.3 H*
02/08/24
04:15
PT
INR
APTT 153.3 H*
Microbiology
02/08/24 09:16 Nasal Swab Influenza Types A & B (CHAVA) - Final
Negative for Influenza A & B, NAAT
Negative results must be combined with clinical observations
and patient history.
Nucleic Acid Amplification test (NAAT)performed on the
[employer] platform.
[2024-02-08 12:40] LABS: APTT 55.8 Sec (23.4-35.0)
[2024-02-08] MEDS: HEPARIN 10000 UNITS IV (12:47)
--- NOTE | 2024-02-08 14:44 | CM ---
Consult for [facility] pricing. CM called patient's preferred [facility]. Confirmed with Dr. Kingsley for dosing. Patient's Eliquis is $270.89/month. I gave him a teaching booklet with a coupon for a 30 month supply for free and a 10$ coupon for the next
month's supply.
Dr. Kingsley confirmed she ordered home 02 eval. Still waiting for this to be performed. Patient's attending hospitalist also made aware.
Patient was given an IMM. He verbalized understanding of the form and signed. Copy given to patient. He is independent. Lives with . Just returned from a trip in [place] visiting different [employer] markets in different countries. He has an
active PCP and pharmacy. No DME.
[2024-02-08 19:39] LABS: APTT > 200 Sec (23.4-35.0)
[2024-02-09 03:30] VITALS: BP 114/70
[2024-02-09 07:00] VITALS: BP 152/79
[2024-02-09 07:48] LABS: % Basophils 0.7 % (0-2); % Eosinophils 3.8 % (0-6); % Immature Granulocytes 0.7 % (0-0.5); % Lymphocytes 23.7 % (20.5-51.1); % Monocytes 6.3 % (1.7-9.3); % Neutrophils 64.8 % (42.2-75.2); Absolute Eosinophils 0.2 10^3/uL (0-0.7); Absolute Lymphocytes 1.1 10^3/uL (1.2-3.4); Absolute Monocytes 0.3 10^3/uL (0.1-0.6); Absolute Neutrophils 2.9 10^3/uL (1.4-6.5); Hematocrit 43.2 % (39.0-52.0); Hemoglobin 14.2 g/dL (13.0-18.0); Mean Corp Hgb Conc. 32.9 g/dL (33.0-37.0); Mean Corpuscular Hgb 30.1 pg (27.0-31.0); Mean Corpuscular Volume 91.7 fL (80.0-94.0); Mean Platelet Volume 10.6 fL (7.4-10.4); Nucleated Red Blood Cells % 0 % (-); Platelet Count 118 10^3/uL (130-400); Red Blood Cell Count 4.71 10^6/uL (4.70-6.10); Red Cell Dist. Width 13.7 % (11.5-14.5); White Blood Cell Count 4.5 10^3/uL (4.8-10.8)
[2024-02-09] MEDS: ELIQUIS 10 MG PO (08:03)
[2024-02-09] MEDS: LIPITOR 20 MG PO (08:03)
[2024-02-09] MEDS: DIOVAN 160 MG PO (08:04)
[2024-02-09 08:42] LABS: ALT (SGPT) 30 U/L (0-50); AST (SGOT) 28 U/L (17-59); Albumin 3.4 g/dl (3.5-5.0); Alkaline Phosphatase 67 U/L (38-126); Blood Urea Nitrogen 13 mg/dl (9-20); Calcium 8.5 mg/dl (8.4-10.2); Carbon Dioxide 28 mmol/L (22-30); Chloride 107 mmol/L (98-107); Estimated Creatinine Clearance > 125 ml/min; Glucose 114 mg/dl (70-99); Potassium 4.3 mmol/L (3.5-5.1); Sodium 139 mmol/L (135-145); Total Protein 5.6 g/dl (6.3-8.2); eGFR > 60.00
[2024-02-09 10:51] LABS: APTT 33.3 Sec (23.4-35.0)
[2024-02-09 11:00] VITALS: BP 122/68
--- NOTE | 2024-02-09 11:06 | CM ---
Patient seen bedside, patient reports no needs to CM, reports will be here to provide transportation home. CM reviewed IMM, signed, placed in chart, patient declining copy. CM will continue to follow for all discharge planning needs.
Plan; home with , no needs.
--- NOTE | 2024-02-09 11:50 | W.PN.HOSP.TC ---
Today's Communication/Plan
-
dc
Assessment / Plan
Assessment / Plan
68yo M with PMHx of RA, HLD, HTN, obesity came with dizziness started after he had transatlantic flight, found b/l PE and RLE acute DVT, remained hemodynamically stable and no signs of right heart strain. Hypoxia resolved, CM provided coupon for
starter pack and second month of medications. Medically stable for D/C
A/P:
#Acute hypoxic insufficiency 2/2 Saddle b/l acute provoked pulmonary embolism
#Acute RLE DVT
Hemodynamically stable
No CT evidence for the RH strain
Heparin drip and eventual DOAC, for at least 3months
Outpatient age-appropriate CA screening and consideration for CT abd/pelvis by PCP - patient verbalized agreement and understanding of the instructions
Pulm consult
Echo: EF 60%, no obvious wall motion abnormalities, normal RV function
#Non-ischemic myocardial injury
2/2 PE
Troponin improving
EKG with no ST elevation or TWI consistent with ACS
No substernal pain
#RA
#DISH
hold Kevzara -could be provoking factor
#EssentiL HTN
cont home meds
#Morbid obesity with BMI 45.5
patient recently lost 25lbs on Semaglutide - cont as outpatient
#Mild thrombocytopenia
not consistent with HIT since started during firts 24h of admission. COnt heparin and check for HIT Ab
Can be 2/2 Kevzara vs VTE
monitor
DVT ppx - on hep drip
Full code
I have spent at least 58min reviewing chart, test results, communication with consultants and direct patient care
Anticipated Discharge: Today
Subjective/Interval History
-
Date of Service: February 09, 2024
Objective Data
-
Labs:
Laboratory Results
02/09/24 02/09/24 02/09/24
04:14 07:06 10:17
WBC 4.5 L
Hgb 14.2
Hct 43.2
Plt Count 118 L
APTT 82.0 H 33.3
Sodium 139
Potassium 4.3
Chloride 107
Carbon Dioxide 28
BUN 13
Creatinine 0.8
Glucose 114 H
Calcium 8.5
Total Bilirubin 1.0
AST 28
ALT 30
Alkaline Phosphatase 67
Vital Signs:
Vital Signs
Temp Pulse Resp BP Pulse Ox
98.0 F 58 18 152/79 99
02/09/24 07:00 02/09/24 07:00 02/09/24 07:00 02/09/24 07:00 02/09/24 08:00
I&O
02/08/24 02/09/24 02/10/24
06:59 06:59 06:59
Intake Total 96 / 96
Output Total 150 / 150
Balance -54 / -54
Review of Systems
-
History Source: Patient
All other systems: Reviewed and negative
Physical Exam
-
General: No Apparent Distress
HEENT: Normocephalic
Respiratory: Clear to Auscultation
Cardiac: Regular Rhythm
GI: Soft, Nontender and Nondistended
Genito-urinary: No Costovertebral Tender
Musculoskeletal: No Clubbing, No Cyanosis and No Edema
Skin: Warm
Neuro: Awake, Alert, Oriented and AO x 3
Psych: Calm
--- NOTE | 2024-02-09 11:57 | W.DCSUMMARY ---
Discharge Summary
Discharge Data
Date of Admission: 02/07/24
Date of Discharge: 02/09/24
-
Pending Results: Yes
Additional Pending Results:
HIT Ab
Hospital Course
68yo M with PMHx of RA, HLD, HTN, obesity came with dizziness started after he had transatlantic flight, found b/l PE and RLE acute DVT, remained hemodynamically stable and no signs of right heart strain. Hypoxia resolved, CM provided coupon for
starter pack and second month of medications. Outpatient age-appropriate CA screening and consideration for CT abd/pelvis by PCP - patient verbalized agreement and understanding of the instructions. HITAb pending, but will not change mgmt with
Eliquis onboard. Medically stable for D/C
I have spent at least 58min reviewing chart, test results, communication with consultants and direct patient care
Patient was managed for:
#Acute hypoxic insufficiency 2/2 Saddle b/l acute provoked pulmonary embolism
#Acute RLE DVT
#Non-ischemic myocardial injury
#RA
#DISH
#Essential HTN
#Morbid obesity with BMI 45.5
#Mild thrombocytopenia
#Minimal leukopenia
Discharge Plan
-
Patient Disposition: Home (Routine Discharge)
Discharge Diagnosis/Procedures: VTE
Diet: Regular
Activity: As tolerated
Driving Restrictions: As prior to admission
Blood Work: repeat CBC with PCP in 1-2 weeks
Referrals:
Jose Alfredo Abarca MD [Family Provider] - in one to two weeks (Age-appropriate cancer screening and possible abdominal CT)
Janie Kingsley DO [Active] - in two weeks (PFTs)
Rio Ray MD [Active] - in one to two months (Hematologic workup for clotting disorder)
Prescriptions:
New
Eliquis DVT-PE Treat 30D Start 5 mg (74 tabs) tablets,dose pack
See Rx Instructions .ROUTE .COMPLEX Qty: 74 0RF
Rx Instructions:
orally per package directions
Continued
atorvastatin 20 MG tablet
20 mg PO DAILY
ibuprofen 200 MG capsule
3 tab PO Q6HPRN PRN (Reason: mild pain)
valsartan [Diovan] 80 MG tablet
160 mg PO DAILY
Semaglutide Vial
40 units SC SA
Discontinued
Kevzara 150 mg/1.14 mL Pen Injector
150 mg SC Q2W
Discharge Orders:
Discharge Patient (As Directed); Ordered 02/09/24
Ordered By: Hugo Fitzgerald
Discharge Date and Time
Print Language: INDONESIAN
--- NOTE | 2024-02-09 12:13 | RESPNOTE ---
home O2 assessment ordered 02/07 to be completed prior to discharge. patient 91% RA at rest, ambulated >130 feet on RA, maintained SpO2 92% RA.
[2024-02-09 20:40] LABS: Hepatitis C Antibody Negative (Negative)
== END 2024-02-09 12:25 | disposition home or self-care (01) | DRG 176 ==
LOC: 4 WEST ACU 18:19
PROVIDERS: Emergency Medicine; Nurse Practitioner Family; Physician Assistant; ADMITTING PHYSICIAN Internal Medicine; ATTENDING PHYSICIAN Internal Medicine; CONSULT PHYSICIAN Internal Medicine Critical Care Medicine; EMERGENCY PHYSICIAN Emergency Medicine; FAMILY PHYSICIAN Family Medicine
DX: I26.92 Saddle embolus of pulmonary artery without acute cor pulmonale (principal); I5A Non-ischemic myocardial injury (non-traumatic); I82.411 Acute embolism and thrombosis of right femoral vein; Z68.42 Body mass index [BMI] 45.0-49.9, adult; I10 Essential (primary) hypertension; E78.00 Pure hypercholesterolemia, unspecified; E66.01 Morbid (severe) obesity due to excess calories; K21.9 Gastro-esophageal reflux disease without esophagitis; N40.0 Benign prostatic hyperplasia without lower urinary tract symptoms; R09.02 Hypoxemia; M06.9 Rheumatoid arthritis, unspecified; M48.14 Ankylosing hyperostosis [Forestier], thoracic region; D69.6 Thrombocytopenia, unspecified; Z96.653 Presence of artificial knee joint, bilateral; Z96.641 Presence of right artificial hip joint; Z79.899 Other long term (current) drug therapy; Z79.84 Long term (current) use of oral hypoglycemic drugs; Z11.52 Encounter for screening for COVID-19
CPT/HCPCS: 71275; 80053; 83880; 84484; 85025; 85027; 85379; 85610; 85730; 86022; 86803; 87502; 87811; 93005; 93306; 93970; Q9950; Q9967

== ENCOUNTER → 2024-06-19 09:03 | Outpatient (REF) | payer MEDICARE, OTHER, SELFPAY | LOC: RAD 09:03 | PROVIDERS: ATTENDING PHYSICIAN Specialist; FAMILY PHYSICIAN Family Medicine | DX: M85.5 Aneurysmal bone cyst (principal); M19.011 Primary osteoarthritis, right shoulder; M75.41 Impingement syndrome of right shoulder | CPT/HCPCS: 73200 ==

== ENCOUNTER → 2024-07-18 07:07 | Outpatient (REF) | payer MEDICARE, OTHER, SELFPAY | LOC: RAD 07:07 | PROVIDERS: ATTENDING PHYSICIAN Internal Medicine Hematology & Oncology; FAMILY PHYSICIAN Family Medicine | DX: I26.09 Other pulmonary embolism with acute cor pulmonale (principal); I82.401 Acute embolism and thrombosis of unspecified deep veins of right lower extremity | CPT/HCPCS: 93971 ==

== ENCOUNTER 2024-08-10 05:55 | Day surgery (SDC) | payer MEDICARE, OTHER, SELFPAY ==
--- NOTE | 2024-07-27 13:41 | CM ---
Addendum entered by Rocío Garner RN 07/30/24 12:56:
CM spoke with patient. CM confirmed demographics. Patient lives independently with . Patient has a remote history of VN. Patient does not have a history of placement. Patient is active with his PCP. [facility]
PLAN: plan, home no needs.
Original Note:
ALTHEA left message.
[2024-08-06 13:39] VITALS: BMI 41.2
[2024-08-06 14:00] LABS: Hematocrit 43.4 % (39.0-52.0); Hemoglobin 14.4 g/dL (13.0-18.0); Mean Corp Hgb Conc. 33.2 g/dL (33.0-37.0); Mean Corpuscular Hgb 29.4 pg (27.0-31.0); Mean Corpuscular Volume 88.6 fL (80.0-94.0); Platelet Count 248 10^3/uL (130-400); Red Cell Dist. Width 13.9 % (11.5-14.5); White Blood Cell Count 5.7 10^3/uL (4.8-10.8)
[2024-08-06 14:21] LABS: Glycohemoglobin (HgbA1c) 5.3 % (4.0-5.6)
[2024-08-06 14:24] LABS: ALT (SGPT) 17 U/L (0-50); AST (SGOT) 20 U/L (17-59); Alkaline Phosphatase 79 U/L (38-126); Blood Urea Nitrogen 15 mg/dl (9-20); Calcium 9.4 mg/dl (8.4-10.2); Carbon Dioxide 29 mmol/L (22-30); Chloride 106 mmol/L (98-107); Estimated Creatinine Clearance 122 ml/min; Glucose 101 mg/dl (70-99); Potassium 4.6 mmol/L (3.5-5.1); Sodium 141 mmol/L (135-145); Total Bilirubin 0.9 mg/dl (0.2-1.3); Total Protein 6.7 g/dl (6.3-8.2); eGFR > 60.00
[2024-08-07 09:09] VITALS: BMI 41.2
[2024-08-10] VITALS (10 sets, daily range): BP systolic 114–133; BP diastolic 56–73
[2024-08-10] MEDS: TYLENOL 1000 MG PO (06:35)
[2024-08-10] MEDS: CELEBREX 200 MG PO (06:35)
[2024-08-10] MEDS: NORMOSOL-R/PLASMALYTE-A 1000 IV (06:36)
[2024-08-10] MEDS: BACTROBAN NASAL 1 GRAM NASAL (06:36)
[2024-08-10] MEDS: ANCEF 5 IV (11:17)
[2024-08-10] MEDS: TRANEXAMIC ACID 100 IV (11:44)
== END 2024-08-10 12:32 | disposition home or self-care (01) ==
LOC: SDS 05:55
PROVIDERS: ATTENDING PHYSICIAN Specialist; FAMILY PHYSICIAN Family Medicine; OTHER PHYSICIAN Physician Assistant; REFERRING PHYSICIAN Internal Medicine Hematology & Oncology
DX: M19.011 Primary osteoarthritis, right shoulder (principal); M25.711 Osteophyte, right shoulder; Z96.611 Presence of right artificial shoulder joint
CPT/HCPCS: 23472; 36415; 73020; 80053; 83036; 85027; 87070; 93005; C1713; C1776